=== PATIENT | female | born 1990 | race Caucasian/White ===

== ENCOUNTER 2017-09-09 11:02 | Emergency (ER) | payer OTHER ==
[2017-09-09 11:09] VITALS: BP 119/77; PULSE 99; RESP 18; TEMP 98.4; O2SAT 97
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
== END 2017-09-09 12:46 | disposition home or self-care (01) ==
LOC: EDUNIT#
DX: S62.337A Displaced fracture of neck of fifth metacarpal bone, left hand, initial encounter for closed fracture (principal); S02.5XXA Fracture of tooth (traumatic), initial encounter for closed fracture; V49.49XA Driver injured in collision with other motor vehicles in traffic accident, initial encounter; Y92.410 Unspecified street and highway as the place of occurrence of the external cause; Y99.8 Other external cause status; Y93.89 Activity, other specified